=== PATIENT | male | born 1965 | race Caucasian/White ===

== ENCOUNTER 2025-07-14 02:27 | Emergency (ER) | payer BC ==
[~2025-07-14] VITALS: Ht 175.3 cm; Wt 79.0 kg
[2025-07-14 02:36] VITALS: O2SAT 99
[2025-07-14 04:08] LABS: BASOPHILS % 0.7 % (0.0-2.0); EOSINOPHILS % 1.6 % (0.0-5.0); HEMATOCRIT. 38.1 % (42.0-52.0); HEMOGLOBIN. 12.8 g/dL (14.0-18.0); LYMPHOCYTES % 25.6 % (20.0-50.0); MEAN PLATELET VOLUME 7.1 fl (7.4-10.4); MONOCYTES % 7.9 % (2.0-8.0); NEUTROPHILS % 64.2 % (40.0-76.0); PLATELET 335 x1000/uL (130-400); RED BLOOD CELL COUNT 4.34 mill/uL (4.7-6.1); RED CELL DISTRIBUTION WIDTH 15.2 % (11.6-14.6)
[2025-07-14 04:22] LABS: CREATININE 0.9 mg/dL (0.6-1.3); UREA NITROGEN BLOOD 13 mg/dL (9-23)
[2025-07-14] MEDS: KETOROLAC 30MG/ML VIAL IM ONE (05:42)
[2025-07-14] MEDS ORDERED: TRAM50TA3 MT (05:43)
[2025-07-14] MEDS ORDERED: KETO10TA2 MT (05:43)
[2025-07-14] MEDS: KETOROLAC 30MG/ML VIAL IM NR (05:47)
[2025-07-14 05:50] VITALS: BP 141/77; PULSE 80; RESP 14; TEMP 36.7; O2SAT 99
== END 2025-07-14 05:55 | disposition home or self-care (01) ==
LOC: ER 02:27
DX: K40.90 Unilateral inguinal hernia, without obstruction or gangrene, not specified as recurrent (principal); D64.9 Anemia, unspecified; I50.9 Heart failure, unspecified; Z79.899 Other long term (current) drug therapy
CPT/HCPCS: 99285; 76857; 80048; 85025; 36415; 96372; J1885

== ENCOUNTER 2025-07-18 03:35 | Emergency (ER) | payer BC ==
[~2025-07-18] VITALS: Ht 170.2 cm; Wt 72.0 kg
[~2025-07-18 03:35] MED LIST: KETO10TA2 MT; TRAM50TA3 MT
[2025-07-18 03:42] VITALS: O2SAT 100
[2025-07-18] MEDS ORDERED: CEPH500C2 MT (04:21)
[2025-07-18] MEDS ORDERED: TRAM50TA3 MT (04:21)
[2025-07-18] MEDS: IBUPROFEN 600MG TABLET PO ONE (04:24)
[2025-07-18] MEDS: CEPHALEXIN 250MG CAPSULE PO ONE (04:24)
[2025-07-18 04:40] VITALS: BP 146/78; PULSE 88; RESP 16; TEMP 37; O2SAT 99
== END 2025-07-18 04:41 | disposition home or self-care (01) ==
LOC: ER 03:35
DX: L03.113 Cellulitis of right upper limb (principal); I50.9 Heart failure, unspecified; Z79.899 Other long term (current) drug therapy
CPT/HCPCS: 99283

== ENCOUNTER 2025-07-21 12:54 | Emergency (ER) | payer BC ==
[~2025-07-21] VITALS: Ht 175.3 cm; Wt 69.0 kg
[~2025-07-21 12:54] MED LIST changes: +CEPH500C2 MT
[2025-07-21 13:04] VITALS: BP 130/83; PULSE 99; RESP 18; TEMP 36.7; O2SAT 98
== END 2025-07-21 16:00 | disposition left against medical advice (07) ==
LOC: ER 12:54
DX: L03.113 Cellulitis of right upper limb (principal); Z53.21 Procedure and treatment not carried out due to patient leaving prior to being seen by health care provider

== ENCOUNTER 2025-07-21 20:43 | Emergency (ER) | payer BC ==
[~2025-07-21] VITALS: Ht 172.7 cm; Wt 63.0 kg
[2025-07-21 21:04] VITALS: BP 116/73; PULSE 88; RESP 18; TEMP 36.7; O2SAT 99
== END 2025-07-22 00:55 | disposition left against medical advice (07) ==
LOC: ER 20:43
DX: R60.0 Localized edema (principal); I50.9 Heart failure, unspecified; Z86.73 Personal history of transient ischemic attack (TIA), and cerebral infarction without residual deficits; Z79.899 Other long term (current) drug therapy
CPT/HCPCS: 99283

== ENCOUNTER 2025-07-26 17:17 | Emergency (ER) | payer BC ==
[~2025-07-26] VITALS: Ht 172.7 cm; Wt 69.0 kg
[2025-07-26 17:24] VITALS: BP 148/81; PULSE 102; RESP 18; TEMP 36.8; O2SAT 100
== END 2025-07-26 17:45 | disposition left against medical advice (07) ==
LOC: ER 17:17
DX: R10.9 Unspecified abdominal pain (principal); I50.9 Heart failure, unspecified; Z53.21 Procedure and treatment not carried out due to patient leaving prior to being seen by health care provider

== ENCOUNTER 2025-07-26 21:38 | Emergency (ER) | payer BC ==
[~2025-07-26] VITALS: Ht 175.3 cm; Wt 68.0 kg
[2025-07-26 21:47] VITALS: BP 133/80; PULSE 85; RESP 16; TEMP 36.8; O2SAT 98
[2025-07-26] MEDS ORDERED: ACETAMINOPHEN 325MG TABLET PO ONE (22:00)
[2025-07-26] MEDS ORDERED: KETOROLAC 15MG/ML VIAL IV ONE (22:00)
== END 2025-07-26 23:30 | disposition left against medical advice (07) ==
LOC: ER 21:38
DX: R00.2 Palpitations (principal); R10.31 Right lower quadrant pain; I11.0 Hypertensive heart disease with heart failure; I50.9 Heart failure, unspecified; Z79.899 Other long term (current) drug therapy; Z98.890 Other specified postprocedural states
CPT/HCPCS: 99283